=== PATIENT | male | born 1985 | race Caucasian/White ===

== ENCOUNTER 2019-12-26 14:52 | Emergency (ER) | payer OTHER, SELFPAY ==
[~2019-12-26 14:52] MED LIST: Iopamidol 370 76% 50 ML VIAL FS ONE; Iopamidol-370 76% 500 ML 1 ML ONE
[2019-12-26 15:21] LABS: #Basophils 0.1 thou/uL (0.0-0.2); #Eosinphils 0.1 thou/uL (0.0-0.7); #Lymphocytes 2.7 thou/uL (1.20-3.40); #Monocytes 0.9 thou/uL (0.11-0.59); #Neutrophils 11.8 thou/uL (1.40-6.50); %Basophils 0.8 % (0.0-1.0); %Eosinophils 0.6 % (0.0-10.0); %Monocytes 5.7 % (0.0-10.0); %Neutrophils 75.7 % (42.0-75.0); Hemoglobin 17.9 g/dL (14.0-18.0); Mean Corpuscular Hemoglobin 29.8 pg (27.0-31.0); Mean Corpuscular Volume 90.3 fL (78.0-98.0); Mean Platelet Volume 8.7 fL (7.4-10.4); Platelet Count 195 thou/uL (130-400); RBC Distribution Width 12.6 % (11.5-14.5); Red Blood Cell (RBC) Count 6.01 mill/uL (4.70-6.10); White Blood Cell (WBC) Count 15.5 thou/uL (4.8-10.8)
[2019-12-26 15:46] LABS: ALT (SGPT) 45 U/L (8-55); AST (SGOT) 28 U/L (5-34); Albumin 4.7 g/dL (3.5-5.0); Alkaline Phosphatase 58 U/L (40-110); Anion Gap 15 mmol/L (10-20); BUN (Urea Nitrogen) 9 mg/dL (8.9-20.6); Bilirubin, Total 0.8 mg/dL (0.2-1.2); Calc. Creatinine Clearance 0 mL/min (70-130); Carbon Dioxide 25 mmol/L (22-29); Chloride 106 mmol/L (98-107); Estimated GFR-MDRD 82; Globulin 3.4 g/dL (2.4-3.5); Glucose 130 mg/dL (70-105); Protein, Total 8.1 g/dL (6.0-8.3); Sodium 142 mmol/L (136-145)
[2019-12-26] MEDS ORDERED: Ondansetron PF 4 MG/2 ML Vial ONE (15:54)
[2019-12-26] MEDS ORDERED: Morphine 4 MG/ML VIAL ONE ×2 (15:54→16:53)
[2019-12-26 17:04] LABS: Bilirubin Negative (Negative); Blood, Urine Negative (Negative); Clarity Clear (Clear); Glucose, Urine (Dipstick) Normal (Negative); Leukocyte Negative Leu/uL (Negative); Nitrite Negative (Negative); Protein, Urine (Dipstick) Negative (Neg-Trace); Urobilinogen Normal mg/dL (Less than 2)
[2019-12-26] MEDS ORDERED: Promethazine HCl 25 MG/ML VIAL ONE (17:16)
--- NOTE | 2019-12-26 17:59 | CT ---
ABDOMEN CT WITH CONTRAST: History: Chills, diaphoresis, body aches. Evaluate for appendicitis. Comparison: None FINDINGS: ABDOMEN CT: Lung bases are clear. Normal heart size. No significant pericardial effusion. Visualized aorta has a normal caliber. No periaortic fat stranding. Heterogeneous attenuation of the liver due to hepatic steatosis. Spleen, pancreas and adrenal glands have appropriate attenuation and enhancement. Hypodensity emanating from the upper pole of the left k idney is compatible with a 5.2 cm cyst. Symmetric enhancement of the kidneys. Bilaterally, no obstruc tive uropathy. No gastrohepatic, retrocrural or periportal lymphadenopathy. There are mildly enlarged mesenteric lymph nodes. Transport Tech lymph node measures 1.0 x 0.4 cm. Co rrelate for mesenteric lymphadenitis. No mesenteric mass, free air, or free fluid. Limited evaluation of the alimentary canal by the lack of oral contrast. No evidence of a bowel obstr uction. Normal ileocecal junction. Fecalization of the distal ileum likely due to incompetent ileocec al valve. Decompressed colon. Normal caliber appendix emanates from the cecal apex. PELVIC CT: No mass, lymphadenopathy, free air or free fluid. No lytic or blastic lesions in the osseous structures. IMPRESSION: 1. Mildly enlarged mesenteric lymph nodes. Correlate for mesenteric lymphadenitis. 2. Normal caliber appendix. POS: PPP
== END 2019-12-26 18:20 | disposition home or self-care (01) ==
LOC: ERS 14:52
DX: I88.0 Nonspecific mesenteric lymphadenitis (principal); J45.909 Unspecified asthma, uncomplicated
CPT/HCPCS: 36415; 74177; 80053; 81003; 85025; 96361; 96365; 96375; 96376; J2270; J2405; J2550; Q9967